=== PATIENT | male | born 1975 | race Caucasian/White ===

== ENCOUNTER 2022-10-08 11:37 | Outpatient (CLI) | payer BC, SELFPAY ==
[2022-10-08 13:39] LABS: Basophils Absolute Auto 0.03 K/uL (0.00-0.30); Basophils Percent Auto 0.5 % (0.0-3.0); Eosinophils Absolute Auto 0.34 K/uL (0.00-0.50); Eosinophils Percent Auto 5.4 % (0.0-7.0); Hematocrit 45.5 % (37.0-53.0); Hemoglobin* 15.6 gm/dL (13.5-17.5); Immature Granulocytes Abs Auto 0.01 K/uL (0.00-0.30); Immature Granulocytes Pct Auto 0.2 %; Lymphocytes Absolute Auto 2.06 K/uL (0.90-2.90); Mean Corpuscular HGB Conc 34 gm/dL (32-36); Mean Corpuscular Hemoglobin 30 pg (26-34); Mean Corpuscular Volume 87 fL (80-100); Monocytes Percent Auto 10.1 % (0.0-11.0); Neutrophils Absolute Auto 3.17 K/uL (1.7-7.0); Neutrophils Percent Auto 50.8 % (42.0-72.0); Platelet Count* 283 K/uL (140-440); RDW Coefficient of Variation % 11.7 % (11.5-15.5); Red Blood Count 5.21 m/uL (4.30-5.90); White Blood Count* 6.24 K/uL (4.50-11.00)
[2022-10-08 13:41] LABS: Slide Review Reflex No
[2022-10-08 13:47] LABS: Albumin* 4.6 g/dL (3.3-5.0); Chloride* 102 mmol/L (96-114); Potassium* 4.8 mmol/L (3.6-5.1); Sodium* 138 mmol/L (135-149)
[2022-10-08 13:49] LABS: Creatinine* 1.1 mg/dL (0.5-1.5); Estimated Glomerular Filt Rate 84 ml/min
[2022-10-08 13:50] LABS: Alanine Aminotransferase* 32 U/L (4-50); Alkaline Phosphatase* 86 U/L (40-150); Aspartate Amino Transferase* 24 U/L (12-35); Bilirubin Total* 0.7 mg/dL (0.1-1.5); Blood Urea Nitrogen* 16 mg/dL (5-24); Carbon Dioxide* 30 mmol/L (20-32); Glucose* 218 mg/dL (60-115); Total Protein* 7.1 g/dL (6.0-8.3)
[2022-10-08 13:51] LABS: Calcium* 9.5 mg/dL (8.4-10.6)
[2022-10-08 17:12] LABS: C Reactive Protein* < 0.5 mg/dL (0.5-1.0)
[2022-10-09 23:00] LABS: Anti-Nuclear Ab(ANA)IgG ELISA None Detected (None Detected)
== END 2022-10-08 11:38 | disposition home or self-care (01) ==
PROVIDERS: PCP Family Medicine; Visit Provider Family Medicine
DX: M34.9 Systemic sclerosis, unspecified (principal); I73.00 Raynaud's syndrome without gangrene; K21.9 Gastro-esophageal reflux disease without esophagitis; D86.9 Sarcoidosis, unspecified
CPT/HCPCS: 80053; 85025; 86039; 86140; 86141

== ENCOUNTER 2023-04-21 12:19 | Outpatient (CLI) | payer BC, SELFPAY | END 2023-04-21 12:20 | disposition home or self-care (01) | PROVIDERS: PCP Family Medicine; Visit Provider Family Medicine | DX: E11.9 Type 2 diabetes mellitus without complications (principal); D86.9 Sarcoidosis, unspecified; R73.09 Other abnormal glucose; Z13.6 Encounter for screening for cardiovascular disorders | CPT/HCPCS: 80053; 80061; 85025; 85651; 86039; 86140 ==

== ENCOUNTER 2024-11-15 13:44 | Outpatient (CLI) | payer BC, SELFPAY | END 2024-11-15 13:45 | disposition home or self-care (01) | PROVIDERS: PCP Family Medicine; Visit Provider Family Medicine | DX: E11.9 Type 2 diabetes mellitus without complications (principal); D86.9 Sarcoidosis, unspecified; D86.3 Sarcoidosis of skin | CPT/HCPCS: 80053; 82550; 83516; 84182; 85025; 85651; 86038; 86039; 86140; 86235 ==

== ENCOUNTER 2024-12-02 09:57 | Outpatient (CLI) | payer BC, SELFPAY ==
--- NOTE | 2024-12-02 10:00 | CRLHL7_ITS ---
For Patients: As a result of the Century Cures Act, medical imaging exams and procedure reports are released immediately into your electronic medical record. You may view this report before your referring provider. If you have questions, please contact your health care provider. Indication: SARCOIDOSIS Technique: CT Chest 75CC ISOVUE 370 Please note that all CT scans at this facility use dose modulation, iterative reconstruction, and/or weight-based dosing when appropriate to reduce radiation dose to as low as reasonably achievable. Comparison: 12/22/2018 Findings: No infiltrate or edema. No effusion or pneumothorax. No pulmonary nodule. Airways clear. No adenopathy. Fatty liver. No adrenal nodule. No fracture. Impression: No acute findings. No adenopathy or pulmonary nodules. No scarring or fibrosis. Please note that all CT scans at this facility use dose modulation, iterative reconstruction, and/or weight-based dosing when appropriate to reduce radiation dose to as low as reasonably achievable. Dictated by Humberto Min MD @ 12/02/2024 2:55:55 PM (Electronically Signed)
== END 2024-12-02 09:58 | disposition home or self-care (01) ==
LOC: CT 09:58
PROVIDERS: PCP Family Medicine; Visit Provider Family Medicine
DX: D86.9 Sarcoidosis, unspecified (principal)
CPT/HCPCS: 71260; Q9967